=== PATIENT | female | born 1955 | race Caucasian/White ===

== ENCOUNTER 2019-10-20 13:17 | Outpatient (RCR) | payer MEDICARE, OTHER, SELFPAY ==
[2019-08-07 12:58] LABS: INR 3.1; Prothrombin Time 31.3 Seconds (11.1-14.7)
[2019-08-21 12:51] LABS: Prothrombin Time 38.5 Seconds (11.1-14.7)
[2019-09-04 12:50] LABS: INR 3.9; Prothrombin Time 37.3 Seconds (11.1-14.7)
[2019-09-18 10:39] LABS: INR 2.5; Prothrombin Time 26.1 Seconds (11.1-14.7)
[2019-10-20 13:45] LABS: Hematocrit 34.9 % (37.0-47.0); Hemoglobin 11.6 g/dL (12.0-15.0); Mean Corpuscular HGB Conc 33.2 g/dl (32-36); Mean Corpuscular Volume 96.4 fl (80-100); Mean Platelet Volume 8.8 fl (7.4-10.4); Platelet Count Result 98 k/mm3 (150-375); Red Blood Count 3.62 M/mm3 (4.2-5.4); Red Cell Distribution Width 13.9 % (11.5-14.5); White Blood Count 4.5 K/mm3 (4.5-10.0)
[2019-10-20 13:57] LABS: Alanine Aminotransferase 33 U/L (4-35); Albumin Level 4.5 g/dL (3.5-5.1); Alkaline Phosphatase 149 U/L (38-126); Aspartate Amino Transferase 55 U/L (14-36); Bilirubin,Total 0.9 mg/dL (0.2-1.3); Blood Urea Nitrogen 9 mg/dL (7-17); Calcium 9.2 mg/dL (8.4-10.2); Carbon Dioxide 23 mmol/L (22-30); Chloride 101 mmol/L (98-107); Estimated Glomerular Filt Rate > 60; Glucose 65 mg/dL (65-105); Potassium 4.5 mmol/L (3.4-5.0); Sodium 139 mmol/L (137-145)
[2019-10-20 13:58] LABS: Ammonia 49 umol/L (9-30); INR 2.1; Prothrombin Time 23.4 Seconds (11.1-14.7)
== END 2019-11-05 23:59 | disposition home or self-care (01) ==
LOC: ANHLAB 13:17
PROVIDERS: PCP Family Medicine; Visit Provider Family Medicine
DX: Z51.81 Encounter for therapeutic drug level monitoring (principal); I81 Portal vein thrombosis; Z79.01 Long term (current) use of anticoagulants
CPT/HCPCS: 36415; 80053; 82140; 85027; 85610

== ENCOUNTER 2020-02-19 10:45 | Outpatient (RCR) | payer MEDICARE, OTHER, SELFPAY ==
[2019-11-21 11:11] LABS: INR 2.2; Prothrombin Time 23.6 Seconds (11.1-14.7)
[2019-12-27 13:44] LABS: INR 2.2; Prothrombin Time 23.7 Seconds (11.1-14.7)
[2020-01-01 16:37] LABS: Alpha Fetoprotein Tumor Marker 3.8 ng/mL (<6.1)
[2020-02-19 11:50] LABS: INR 2.7; Prothrombin Time 27.9 Seconds (11.1-14.7)
== END 2020-02-19 23:59 | disposition home or self-care (01) ==
LOC: ANHLAB 10:45
PROVIDERS: Internal Medicine Gastroenterology; PCP Family Medicine; Visit Provider Family Medicine
DX: Z51.81 Encounter for therapeutic drug level monitoring (principal); I85.10 Secondary esophageal varices without bleeding; I81 Portal vein thrombosis; K76.6 Portal hypertension; K75.81 Nonalcoholic steatohepatitis (NASH); K74.60 Unspecified cirrhosis of liver; K21.9 Gastro-esophageal reflux disease without esophagitis; K72.90 Hepatic failure, unspecified without coma; D69.59 Other secondary thrombocytopenia; R14.0 Abdominal distension (gaseous); Z79.01 Long term (current) use of anticoagulants
CPT/HCPCS: 36415; 82105; 85610

== ENCOUNTER 2020-03-28 10:25 | Outpatient (CLI) | payer MEDICARE, OTHER, SELFPAY ==
[2020-03-28 10:43] LABS: Hematocrit 32.6 % (37.0-47.0); Mean Corpuscular HGB Conc 33.7 g/dl (32-36); Mean Corpuscular Volume 97.9 fl (80-100); Mean Platelet Volume 8.3 fl (7.4-10.4); Platelet Count Result 85 k/mm3 (150-375); Red Blood Count 3.33 M/mm3 (4.2-5.4); Red Cell Distribution Width 14.1 % (11.5-14.5); White Blood Count 4.1 K/mm3 (4.5-10.0)
[2020-03-28 10:59] LABS: INR 3.2; Prothrombin Time 31.8 Seconds (11.1-14.7)
[2020-03-28 11:00] LABS: Alanine Aminotransferase 31 U/L (4-35); Albumin Level 4.1 g/dL (3.5-5.1); Alkaline Phosphatase 150 U/L (38-126); Ammonia 13 umol/L (9-30); Anion Gap 10.8 mmol/L (7-16); Aspartate Amino Transferase 52 U/L (14-36); Bilirubin,Total 1.4 mg/dL (0.2-1.3); Blood Urea Nitrogen 8 mg/dL (7-17); Calcium 9.2 mg/dL (8.4-10.2); Carbon Dioxide 25 mmol/L (22-30); Chloride 106 mmol/L (98-107); Cholesterol 219 mg/dL (0-200); Estimated Glomerular Filt Rate > 60; Glucose 118 mg/dL (65-105); HDL Direct 61 mg/dL; Potassium 4.8 mmol/L (3.4-5.0); Sodium 137 mmol/L (137-145); Triglycerides 98 mg/dL (<150)
[2020-03-28 11:11] LABS: LDL Cholesterol Direct 118 mg/dL
== END 2020-03-28 10:26 | disposition home or self-care (01) ==
LOC: ANHLAB 10:27
PROVIDERS: PCP Family Medicine; Visit Provider Family Medicine
DX: E78.2 Mixed hyperlipidemia (principal); K72.90 Hepatic failure, unspecified without coma; R53.83 Other fatigue; I81 Portal vein thrombosis; Z51.81 Encounter for therapeutic drug level monitoring; Z79.01 Long term (current) use of anticoagulants
CPT/HCPCS: 36415; 80053; 80061; 82140; 85027; 85610

== ENCOUNTER 2020-05-01 12:33 | Outpatient (RCR) | payer MEDICARE, OTHER, SELFPAY ==
[2020-05-01 13:29] LABS: INR 2.8; Prothrombin Time 29.1 Seconds (11.1-14.7)
== END 2020-07-30 23:59 | disposition home or self-care (01) ==
LOC: ANHLAB 12:33
PROVIDERS: PCP Family Medicine; Visit Provider Family Medicine
DX: Z51.81 Encounter for therapeutic drug level monitoring (principal); I81 Portal vein thrombosis; Z79.01 Long term (current) use of anticoagulants
CPT/HCPCS: 36415; 85610

== ENCOUNTER 2020-06-10 13:24 | Outpatient (CLI) | payer MEDICARE, OTHER, SELFPAY ==
--- NOTE | ~2020-06-10 | CT_ITS ---
EXAMINATION: CT abdomen pelvis w con DATE: 06/10/2020 14:05 INDICATION: Portal vein thrombosis. TECHNIQUE: Computed tomography (CT) of the abdomen and pelvis was performed with 100 mL Omnipaque 350 intravenous contrast. Automated exposure control and iterative reconstruction technique were employe d. The dose-length product was 280.86 mGy-cm. COMPARISON: CT abdomen and pelvis 03/14/2009 FINDINGS: The visualized portions of the lung bases demonstrate mild chronic interstitial lung diseas e. No pleural effusion. The heart size is normal. There are coronary artery calcifications. No perica rdial effusion. There is a small sliding hiatal hernia. Esophageal varices are noted. The liver demon strates surface nodularity, consistent with cirrhosis. There are gallstones in the gallbladder, which is normal in size. There is mild splenomegaly measuring 13.5 cm. Calcifications in the spleen are co nsistent with old granulomatous disease. The pancreas, adrenal glands, and kidneys are normal. There are paraesophageal and splenorenal portacaval shunts. The large portal veins are patent. There is div erticulosis of the colon without evidence of diverticulitis. There are no dilated loops of bowel. The appendix is normal. There are no pathologically enlarged lymph nodes. There is no free intraperitone al fluid. There is a 5.9 cm uterine fibroid. There is lumbar levoscoliosis. There is severe lower lum bar spondylosis. IMPRESSION: 1. Cirrhosis of the liver with portal venous hypertension. 2. Cholelithiasis. 3. Small sliding hiatal hernia. Reviewed, dictated and finalized at location A.
[2020-06-10 13:58] LABS: Estimated Glomerular Filt Rate > 60
== END 2020-06-10 13:25 | disposition home or self-care (01) ==
PROVIDERS: PCP Family Medicine; Referring Provider Internal Medicine Gastroenterology; Visit Provider Family Medicine
DX: I81 Portal vein thrombosis (principal)
CPT/HCPCS: 74177; Q9967